=== PATIENT | female | born 1965 | race Caucasian/White ===

== ENCOUNTER 2020-10-19 10:01 | Outpatient (REF) | payer OTHER, SELFPAY ==
--- NOTE | 2020-10-19 10:05 | MM_ITS ---
EXAMINATION: MM SCREENING DIGITAL BREAST TOMOSYNTHESIS, BILATERAL CLINICAL INFORMATION: Screening. Asymptomatic. The lifetime risk of breast cancer based on the Tyrer-Cuzick Model is 6%. COMPARISON: Mammography: 10/07/2019, 10/01/2018, 06/09/2017 TECHNIQUE: Digital breast tomosynthesis is performed in both the craniocaudal and mediolateral oblique views along with computer-aided detection (CAD). Synthesized 2D images are generated from the tomosynthesis. Additional bilateral MLO views are provided. FINDINGS: There are scattered areas of fibroglandular density (ACR BI-RADS breast composition Category b). There are no significant masses, abnormal calcifications, or other abnormalities. MM/MM tomosynthesis screening BI IMPRESSION: No mammographic evidence of malignancy. ASSESSMENT: BI-RADS 1: Negative RECOMMENDATION: Routine annual mammography screening. This patient's information was entered into a reminder system with a target due date for their next mammogram.
== END 2020-10-19 10:02 | disposition home or self-care (01) ==
LOC: HO.MAMMO 10:01
PROVIDERS: PCP Internal Medicine; Visit Provider Internal Medicine
DX: Z12.31 Encounter for screening mammogram for malignant neoplasm of breast (principal)
CPT/HCPCS: 77063; 77067

== ENCOUNTER 2021-10-23 09:44 | Outpatient (REF) | payer OTHER, SELFPAY ==
--- NOTE | ~2021-10-23 | MM_ITS ---
EXAMINATION: MM SCREENING DIGITAL BREAST TOMOSYNTHESIS, BILATERAL CLINICAL INFORMATION: Screening. Asymptomatic. The lifetime risk of breast cancer based on the Tyrer-Cuzick Model is 5%. COMPARISON: Mammography: 10/19/2020, 10/07/2019, 10/01/2018 TECHNIQUE: Digital breast tomosynthesis is performed in both the craniocaudal and mediolateral oblique views along with computer-aided detection (CAD). Synthesized 2D images are generated from the tomosynthesis. FINDINGS: There are scattered areas of fibroglandular density (ACR BI-RADS breast composition Category b). There are no significant masses, abnormal calcifications, or other abnormalities. Parenchymal pattern is similar to prior studies. There is no developing density or architectural abnormality. The axilla and skin contours are unremarkable. No significant changes. MM/MM tomosynthesis screening BI IMPRESSION: No mammographic evidence of malignancy. ASSESSMENT: BI-RADS 1: Negative RECOMMENDATION: Routine annual mammography screening. This patient's information was entered into a reminder system with a target due date for their next mammogram.
== END 2021-10-23 09:45 | disposition home or self-care (01) ==
LOC: HO.MAMMO 09:44
PROVIDERS: Visit Provider Internal Medicine
DX: Z12.31 Encounter for screening mammogram for malignant neoplasm of breast (principal)
CPT/HCPCS: 77063; 77067

== ENCOUNTER 2022-04-08 09:17 | Outpatient (REF) | payer OTHER, SELFPAY ==
[2022-04-08 11:05] LABS: MANUAL DIFF FLAG NO
[2022-04-08 11:07] LABS: Eosinophils Percent Auto 0.3 % (0-4); Hematocrit 45.2 % (37.0-47.0); Hemoglobin 14.8 g/dl (12.0-16.0); Imm Gran Abs Auto 0.01 X10*3/uL (0.00-0.03); Imm Gran Pct Auto 0.3 % (0.0-0.4); Lymphocytes Absolute Auto 0.9 X10*3/uL (1.2-4.9); Lymphocytes Percent Auto 31.1 % (20-40); Mean Corpuscular HGB Conc 32.7 g/dl (31.0-35.0); Mean Corpuscular Hemoglobin 30.6 pg (27.0-33.0); Mean Corpuscular Volume 93.6 fL (80.0-98.0); Mean Platelet Volume 9.9 fL (9.4-12.3); Monocytes Absolute Auto 0.4 X10*3/uL (0.1-1.2); Monocytes Percent Auto 14.7 % (2-11); Neutrophils Absolute Auto 1.6 x10*3/uL (2.0-8.3); Neutrophils Percent Auto 53.6 % (45-73); Platelet Count 205 X10*3/uL (160-400); Red Blood Count 4.83 X10*6/uL (4.20-5.50); Red Cell Distribution Width 11.9 % (11.0-16.0); White Blood Count 2.9 X10*3/uL (4.8-10.8)
[2022-04-08 12:43] LABS: Alanine Aminotransferase 35 U/L (0-31); Albumin Level 4.6 g/dL (3.5-5.0); Alkaline Phosphatase 62 U/L (39-117); Anion Gap 14 (12-20); Aspartate Amino Transferase 32 U/L (5-31); Bilirubin Total 0.3 mg/dL (0.0-1.0); Blood Urea Nitrogen 13 mg/dL (9-16); Carbon Dioxide 25 mmol/L (22-29); Chloride 105 mmol/L (96-108); Cholesterol 254 mg/dL; Estimated Glomerular Filt Rate 59; Glucose Random 93 mg/dL (60-115); HDL Cholesterol 86 mg/dL; LDL Cholesterol Calculated 149 mg/dl; Potassium 4.6 mmol/L (3.3-5.1); Sodium 139 mmol/L (135-145); Total Protein 7.3 g/dL (6.5-8.0); Triglycerides 95 mg/dL
== END 2022-04-08 09:18 | disposition home or self-care (01) ==
LOC: HO.MANLDS 09:17
PROVIDERS: Visit Provider Internal Medicine
DX: E78.00 Pure hypercholesterolemia, unspecified (principal)
CPT/HCPCS: 36415; 80053; 80061; 85025

== ENCOUNTER 2022-10-29 09:39 | Outpatient (REF) | payer OTHER, SELFPAY ==
--- NOTE | ~2022-10-29 | MM_ITS ---
EXAMINATION: MM SCREENING DIGITAL BREAST TOMOSYNTHESIS, BILATERAL CLINICAL INFORMATION: Screening. Asymptomatic. The lifetime risk of breast cancer based on the Tyrer-Cuzick Model is 6%. COMPARISON: Mammography: 10/23/2021, 10/19/2020, 10/07/2019 TECHNIQUE: Digital breast tomosynthesis is performed in both the craniocaudal and mediolateral oblique views along with computer-aided detection (CAD). Synthesized 2D images are generated from the tomosynthesis. FINDINGS: There are scattered areas of fibroglandular density (ACR BI-RADS breast composition Category b). There are no significant masses, abnormal calcifications, or other abnormalities. Parenchymal pattern is similar to prior studies. The axilla and skin contours are unremarkable. MM/MM tomosynthesis screening BI IMPRESSION: No mammographic evidence of malignancy. ASSESSMENT: BI-RADS 1: Negative RECOMMENDATION: Routine annual mammography screening. This patient's information was entered into a reminder system with a target due date for their next mammogram.
== END 2022-10-29 09:40 | disposition home or self-care (01) ==
LOC: HO.MAMMO 09:39
PROVIDERS: Visit Provider Internal Medicine
DX: Z12.31 Encounter for screening mammogram for malignant neoplasm of breast (principal)
CPT/HCPCS: 77063; 77067

== ENCOUNTER 2023-04-13 16:15 | Outpatient (REF) | payer OTHER, SELFPAY | END 2023-04-13 16:16 | disposition home or self-care (01) | LOC: HO.MANLNP 16:15 | PROVIDERS: Visit Provider Physician Assistant | DX: K12.39 Other oral mucositis (ulcerative) (principal) | CPT/HCPCS: 87070 ==

== ENCOUNTER 2023-11-03 08:09 | Outpatient (REF) | payer OTHER, SELFPAY | END 2023-11-03 08:10 | disposition home or self-care (01) | LOC: HO.MAMMO 08:09 | PROVIDERS: PCP Internal Medicine; Visit Provider Internal Medicine | DX: Z12.31 Encounter for screening mammogram for malignant neoplasm of breast (principal) | CPT/HCPCS: 77063; 77067 ==

== ENCOUNTER → 2023-11-03 08:15 | Outpatient (BNV) | payer OTHER, SELFPAY | PROVIDERS: PCP Internal Medicine; Visit Provider Radiology Diagnostic Radiology | DX: Z12.31 Encounter for screening mammogram for malignant neoplasm of breast (principal) | CPT/HCPCS: 77063; 77067 ==

== ENCOUNTER 2025-05-11 16:45 | Outpatient (REF) | payer OTHER, SELFPAY ==
--- NOTE | ~2025-05-11 | XR_ITS ---
EXAMINATION: XR HAND 3 OR MORE VIEWS RIGHT HISTORY: PAIN COMPARISON: There are no prior studies available for comparison. FINDINGS: Three views of the right hand are submitted. Osseous mineralization is normal. There is no fracture or dislocation. There is mild osteoarthritis of the DIP joints and the interphalangeal joint of the thumb, with joint space narrowing and osteophyte formation. The soft tissues are unremarkable. XR/XR hand RT min 3V IMPRESSION: Osteoarthritis of the right hand as described. Electronically signed by: Lai Sawant MD 05/14/2025 07:36 AM EDT
--- NOTE | ~2025-05-11 | XR_ITS ---
EXAMINATION: XR SHOULDER 2 OR MORE VIEWS RIGHT HISTORY: PAIN COMPARISON: There are no prior studies available for comparison. FINDINGS: Four views of the right shoulder are submitted. Osseous mineralization is normal. There is no fracture or dislocation. The glenohumeral and acromioclavicular joint spaces are preserved. The soft tissues are unremarkable. XR/XR shoulder RT min 2V IMPRESSION: Unremarkable examination of the right shoulder. Electronically signed by: Lai Sawant MD 05/14/2025 07:35 AM EDT
--- NOTE | ~2025-05-11 | XR_ITS ---
EXAMINATION: XR CERVICAL SPINE 2-3 VIEWS HISTORY: PAIN COMPARISON: There are no prior studies available for comparison. FINDINGS: AP, lateral, and open-mouth odontoid views of the cervical spine are submitted. Osseous mineralization is normal. Seven cervical vertebral bodies are identified maintaining normal height without evidence of fracture or subluxation. There is straightening of the normal cervical lordosis. There is mild degenerative disc disease at the C4-5 and C5-6 levels, with disc space narrowing and osteophyte formation. The odontoid and lateral masses of C1 are intact. There is no prevertebral soft tissue swelling. XR/XR cervical spine 3V IMPRESSION: Straightening of the normal cervical lordosis. Degenerative disc disease at C4-5 and C5-6. Electronically signed by: Lai Sawant MD 05/14/2025 07:39 AM EDT
--- NOTE | ~2025-05-11 | XR_ITS ---
EXAMINATION: XR ELBOW 3 VIEWS RIGHT HISTORY: PAIN COMPARISON: There are no prior studies available for comparison. FINDINGS: Three views of the right elbow are submitted. There is a 6 mm lucent lesion in the proximal ulna. Osseous mineralization is otherwise normal. There is no fracture or dislocation. The joint spaces are preserved. There may be tiny loose bodies in the joint space. There is no joint effusion. XR/XR elbow RT min 3V IMPRESSION: 6 mm lucent lesion in the proximal ulna. This could be further evaluated with MRI. Possible tiny loose bodies in the joint space. Otherwise unremarkable examination of the right elbow. Electronically signed by: Lai Sawant MD 05/14/2025 07:34 AM EDT
== END 2025-05-11 16:46 | disposition home or self-care (01) ==
LOC: HO.XRAY 16:45
PROVIDERS: PCP Internal Medicine; Visit Provider Physician Assistant
DX: M25.521 Pain in right elbow (principal); M25.511 Pain in right shoulder; M79.641 Pain in right hand; M54.2 Cervicalgia
CPT/HCPCS: 72040; 73030; 73080; 73130

== ENCOUNTER → 2025-05-11 17:00 | Outpatient (BNV) | payer OTHER, SELFPAY | PROVIDERS: PCP Internal Medicine; Visit Provider Radiology Diagnostic Radiology | DX: M50.321 Other cervical disc degeneration at C4-C5 level (principal); M50.322 Other cervical disc degeneration at C5-C6 level; M25.511 Pain in right shoulder; M25.521 Pain in right elbow; M89.8X3 Other specified disorders of bone, forearm; M19.041 Primary osteoarthritis, right hand | CPT/HCPCS: 72040; 73030; 73080; 73130 ==

== ENCOUNTER 2025-06-27 07:59 | Outpatient (REF) | payer OTHER, SELFPAY ==
--- NOTE | ~2025-06-27 | MM_ITS ---
EXAMINATION: MM SCREENING DIGITAL BREAST TOMOSYNTHESIS, BILATERAL CLINICAL INFORMATION: Screening. Asymptomatic. COMPARISON: Comparison made to multiple prior, most recent November 03, 2023, and most remote June 09, 2017. TECHNIQUE: Digital breast tomosynthesis is performed in mediolateral oblique and craniocaudal views along with computer-aided detection (CAD). Synthesized 2D images are generated from the tomosynthesis. FINDINGS: BREAST COMPOSITION: There are scattered areas of fibroglandular density. BILATERAL BREASTS: No significant masses, suspicious calcifications or other abnormalities are seen in either breast. MM/MM tomosynthesis screening BI IMPRESSION: BILATERAL BREASTS: Negative, no mammographic evidence of malignancy. Normal interval follow-up is recommended in 12 months. ASSESSMENT: BI-RADS: Category 1: Negative RECOMMENDATION: Routine annual mammography screening. FOLLOW-UP: 1 year F/U This examination should not preclude the clinical evaluation of a suspicious palpable abnormality. This patient's information was entered into a reminder system with a target due date for their next mammogram. Electronically signed by: Kishore Worrell MD 06/29/2025 02:37 PM EDT
--- OUTSIDE RECORDS SUMMARY | 2025-06-27 08:04 | XMS_ITS | Clinical Summary ---
Author Organization [facility] Address [address] [facility] [address] [place] [id number] Phone Care Team Providers Care Artist And Repertoire Manager Name Role Phone Vu Fiore Primary Care Provider [phone] Allergies No known active allergies Medications amitriptyline (ELAVIL) 10 MG tablet 4 tablets every evening. 1 Active levonorgestrel (MIRENA UTRN) by Intrauterine route. Active baclofen (LIORESAL) 10 MG tablet TAKE 1 TABLET BY MOUTH THREE TIMES DAILY FOR 14 DAYS NEEDED Active phentermine 30 MG capsule Take by mouth daily. Active Active Problems Problem Noted Date Diagnosed Date Insulin resistance 02/22/2023 Overweight 02/10/2023 Anxiety 02/09/2023 Laryngopharyngeal reflux 02/09/2023 Hypercholesterolemia 01/23/2020 Acne 01/08/2020 Migraine 01/08/2020 Encounters Date Type Department Care Team Description 04/25/2025 8:00 AM EDT Office Visit [facility] [address] [place] [address] [place] [address] Sorin Cordero MD Encounter for gynecological examination without abnormal finding (Primary Dx) from Last 3 Months Family History Medical History Relation Comments Brain tumor Father Cardiovascular disease Father Other Father carotid endarter ectomy Relation Status Comments Father Mother Social History Tobacco Use Types Packs/Day Years Used Date Smoking Tobacco: Never Smokeless Tobacco: Never Alcohol Use Standard Drinks/Week Comments Yes 1 (1 standard drink = 0.6 oz pur e alcohol) 1-2 weekly Education Answer Date Recorded Are you interested in more education? Not on nelia e 01/29/2023 Are you concerned about learning? Not on file 01/29/2023 No 01/29/2023 No 01/29/2023 Digital Access Answer Date Recorded No 02/27/2023 No 02/27/2023 Reliable internet access at home? Not on file 02/27/2023 Device with a working camera? 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 Not on file Not on file Not on file Last Filed Vital Signs Vital Sign Reading Time Taken Comments Blood Pressure 100/60 04/25/2025 7:55 AM EDT Pulse - - Temperature - - Respiratory Rate - - Oxygen Saturation - - Inhaled Oxygen Concentration - - Weight 62.7 kg (138 lb 3.2 oz) 04/25/2025 7:55 A M EDT Height 162.6 cm (5' 4 ) 04/25/2025 7:55 AM EDT Body Mass Index 23.72 04/25/2025 7:55 AM EDT Plan of Treatment Health Maintenance Due Date Last Done Comments Adult Td,Tdap Booster 1965 LIPID PANEL 1966 DEPRESSION SCREENING 1978 HEPATITIS C SCREENING 1984 HIV ONE-TIME SCREENING (18-6 5 YEARS) 1984 MAMMOGRAM 2006 COLOGUARD 2011 COLONOSCOPY 2011 COLORECTAL CANCER SCREENING 2011 FIT TEST 2011 FOBT 2011 SIGMOIDOSCOPY 2011 VIRTUAL COLONOSCOPY 2011 PNEUMOCOCCAL VACCINES (50+ years) (1 of 1 - PCV) 2016 ZOSTER VACCINES (1 of 2) 2016 INFLUENZA VACCINE (#1) 2025 COVID-19 VACCINE (1 - 2023-2 5 season) 2025 IUD 02/04/2026 02/04/2018 PAP SMEAR 02/08/2027 02/09/2024, 11/24/2017, 11/24/2017 SMOKING STATUS SCREENING (On ce After 26 Yrs) Completed 04/25/2025 HEPATITIS A VACCINES Aged Out No long er eligible based on patient's age to complete this topic HIB VACCINES Aged Out No longer eligi ble based on patient's age to complete this topic MENINGOCOCCAL VACCINES (ACWY) Aged Out No longer eligible based on patient's age to complete this topic MENINGOCOCCAL VACCINES (B) Aged Out N o longer eligible based on patient's age to complete this topic Medical Devices Not on file Procedures Procedure Name Priority Date/Time Associated Diagnosis Comments PAP TEST Routine 02/09/2024 12:00 AM EDT from Last 3 Months or Most Recently Relevant to Health Maintenance Results * Pap Test (02/09/2024 12:00 AM EDT) 02/09/2024 02/10/2024 10: 42 AM EDT Narrative SEE NARRATIVE - 02/15/2024 1:57 [place] [address] Cleat Layer: Shanice Morales MD GLOBAL COMPENSATION MANAGER Cytology Report FINAL DIAGNOSIS A. PAP SMEAR (THIN PREP) CE: SPECIMEN ADEQUACY: Satisfactory for evaluation; transformation zone present. INTERPRETATION: NEGATIVE FOR INTRAEPITHELIAL LESION OR MALIGNANCY. Atrophy. This specimen was analyzed by the automated ThinPrep Imaging System ([employer] and the selected sánchez were reviewed by a director of land. Electronically Signed Out By: TILA Mckee(ASCP) The Pap test is a screening test primarily for squamous cancers and precursors and has associated false-negative and false-positive results. New technologies such as liquid-based preparations may decrease but will not eliminate all false-negative results. Regular sampling and follow-up of unexplained clinical signs and symptoms are recommended to minimize false negative results. PROCEDURES/ADDENDA HPV Testing (Requested) Ordered Date: 02/10/2024 A. PAP SMEAR (THIN PREP) CE: Human Papilloma Virus Test NEGATIVE for high-risk Human Papilloma Virus types 16, 18, 45 and the Other high risk probe set (Includes 31, 33, 35, 39, 51, 52, 56, 58, 59, 66, 68) Note: Testing performed by Jacqueline Paco Onclarity HR-HPV analysis. Clinical correlation is advised. This HPV test was performed at [facility], [address] [place] [address]. This test has been FDA approved for both SurePath and ThinPrep cervical cytology specimens. The accuracy and precision of this test for all other specimen sources has been verified in the Cytopathology Laboratory of the [facility] and has not been cleared or approved by the U.S. Food and Drug Administration. Clinical correlation is advised. CLINICAL HISTORY Date of Last Menstrual Period: Not Provided Menstrual History: Post Menopausal Treatment History: Hormone Therapy Other Clinical Conditions: Screening Pap SPECIMEN SOURCE A: PAP SMEAR (THIN PREP) CE Patient Name: STEPHEN COSTELLOAN : 1965 (Age: 58) Sex: F Institution: [facility] Location: [facility] Date of Collection: 02/09/2024 Date of Reported: 02/15/2024 13:57 Results to: Sorin Cordero MD Sorin Cordero MD CYTOLOGY ORDERABLES Final Result SEE NARRATIVE from Last 3 Months or Most Recently Relevant to Health Maintenance Insurance [facility] H[facility] Care Teams Artist And Repertoire Manager Relationship Specialty Start Date End Date Vu Fiore DO PCP - General 10/07/17 Additional Source Comments The information contained in this document represents components of the legal health record. It is not the complete legal health record.[facility]
== END 2025-06-27 08:00 | disposition home or self-care (01) ==
LOC: HO.MAMMO 07:59
PROVIDERS: PCP Internal Medicine; Visit Provider Internal Medicine
DX: Z12.31 Encounter for screening mammogram for malignant neoplasm of breast (principal)
CPT/HCPCS: 77063; 77067

== ENCOUNTER → 2025-06-27 08:15 | Outpatient (BNV) | payer OTHER, SELFPAY | PROVIDERS: PCP Internal Medicine; Visit Provider Radiology Body Imaging | DX: Z12.31 Encounter for screening mammogram for malignant neoplasm of breast (principal) | CPT/HCPCS: 77063; 77067 ==

== ENCOUNTER 2025-07-28 09:40 | Outpatient (REF) | payer OTHER, SELFPAY ==
--- OUTSIDE RECORDS SUMMARY | 2025-07-28 09:42 | XMS_ITS | Clinical Summary ---
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 PAP SMEAR (THIN PREP) CE: SPECIMEN ADEQUACY: Satisfactory for evaluation; transformation zone present. INTERPRETATION: NEGATIVE FOR INTRAEPITHELIAL LESION OR MALIGNANCY. Atrophy. This specimen was analyzed by the automated ThinPrep Imaging System ([employer]) and the selected sánchez were reviewed by a investigator cash shortage. Electronically Signed Out By: TILA Mckee(ASCP) The [...] 59, 66, 68) Note: Testing performed by [employer] Onclarity HR-HPV analysis. Clinical correlation is advised. This HPV test was performed at [facility], [address] [place] [address]. This test has been FDA approved for both SurePath and ThinPrep cervical cytology specimens. The accuracy and precision of this test for all other specimen sources has been verified in the Cytopathology Laboratory of the [facility] and has not been cleared or approved by the U.S. Food and Drug Administration. Clinical correlation is advised. CLINICAL HISTORY Date of Last Menstrual Period: Not Provided Menstrual History: Post Menopausal Treatment History: Hormone Therapy Other Clinical Conditions: Screening Pap SPECIMEN SOURCE A: PAP SMEAR (THIN PREP) CE Patient Name: SARAH COSTELLO : 1965 (Age: 58) Sex: F Institution: [facility] Location: [facility] Date of Collection: 02/09/2024 Date of Reported: 02/15/2024 13:57 Results to: Sorin Cordero MD [facility] Final Diagnosis A. PAP SMEAR (THIN PREP) CE: SPECIMEN ADEQUACY: Satisfactory for evaluation; transformation zone present. INTERPRETATION: NEGATIVE FOR INTRAEPITHELIAL LESION OR MALIGNANCY. Atrophy. This specimen was analyzed by the automated ThinPrep Imaging System ([employer]) and the selected sánchez were reviewed by a investigator cash shortage. [facility] Results\Inter pretation A. PAP SMEAR (THIN PREP) CE: Human Papilloma Virus TestNEGATIVE for high-risk Human Papilloma Virus types 16, 18, 45 and the Other high risk probe set (Includes 31, 33, 35, 39, 51, 52, 56, 58, 59, 66, 68)Note: Testing performed by [employer] Onclarity HR-HPV analysis. Clinical correlation is advised. This HPV test was performed at [facility], [address] [place] [address]. This test has been FDA approved for both SurePath and ThinPrep cervical cytology specimens. The accuracy and precision of this test for all other specimen sources has been verified in the Cytopathology Laboratory of the [facility] and has not been cleared or approved by the U.S. Food and Drug Administration. Clinical correlation is advised. [facility] Conversion Type (Conversion Source) 02/09/2024 02/10/2024 10:42 AM EDT us Sorin Cordero MD CYTOLOGY ORDERABLES Edited Resul t - Final [facility] [address] [place] [address] from Last 3 Months or Most Recently Relevant to Health Maintenance Insurance [facility] Member Subscriber Plan / Payer (Ef fective 2017-Present) Name:Sarah Costello Relation to Subscriber:Spouse Name:NELA COSTELLO Date of :1900 (Home) Address: [address] [place] [address] Payer ID:Not on file Type:O Address: [place] [id number] [facility] Member Subscriber Plan / Payer (Ef fective 2017-Present) Name:Sarah Costello Relation to Subscriber:Spouse Name:NELA COSTELLO Date of :1900 (Home) Address: [address] [place] [id number] Payer ID:Not on file Type:HMO Address: [place] [id number] [facility] HMO [facility] HMO Care Teams Nursing Resident Relationship Specialty Start Date End Date Vu Fiore DO PCP - General 10/07/17 Additional Source Comments The information contained in this document represents components of the legal health record. It is not the complete legal health record.[facility]
[2025-07-28 09:50] LABS: MANUAL DIFF FLAG NO
[2025-07-28 10:20] LABS: Hematocrit 47.2 % (37.0-47.0); Hemoglobin 15.3 g/dl (12.0-16.0); Imm Gran Abs Auto 0.03 X10*3/uL (0.00-0.03); Imm Gran Pct Auto 0.6 % (0.0-0.4); Lymphocytes Absolute Auto 1.5 X10*3/uL (1.2-4.9); Mean Corpuscular HGB Conc 32.4 g/dl (31.0-35.0); Mean Corpuscular Hemoglobin 30.9 pg (27.0-33.0); Mean Corpuscular Volume 95.4 fL (80.0-98.0); NRBC Abs Auto 0.000 X10*3/uL (0.0-0.012); NRBC Pct Auto 0.0 /100WBC (0.0-0.2); Platelet Count 256 X10*3/uL (160-400); Red Blood Count 4.95 X10*6/uL (4.20-5.50); White Blood Count 4.7 X10*3/uL (4.8-10.8)
[2025-07-28 11:30] LABS: Folate 6.9 ng/mL (> or = 4.0); Vitamin B12 1204 pg/mL (200-900)
[2025-07-28 11:52] LABS: Alanine Aminotransferase 38 U/L (0-31); Albumin Level 5.0 g/dL (3.5-5.0); Alkaline Phosphatase 55 U/L (39-117); Anion Gap 13 (12-20); Aspartate Amino Transferase 33 U/L (5-31); Blood Urea Nitrogen 14 mg/dL (9-16); Calcium 9.2 mg/dL (8.4-10.2); Carbon Dioxide 24 mmol/L (22-29); Chloride 108 mmol/L (96-108); Cholesterol 296 mg/dL (<200); Estimated Glomerular Filt Rate > 60; HDL Cholesterol 98 mg/dL (>40); Potassium 4.4 mmol/L (3.3-5.1); Sodium 141 mmol/L (135-145); Total Protein 7.5 g/dL (6.5-8.0); Triglycerides 97 mg/dL (<150)
== END 2025-07-28 09:41 | disposition home or self-care (01) ==
LOC: HO.LAB 09:40
PROVIDERS: PCP Internal Medicine; Visit Provider Physician Assistant
DX: M54.12 Radiculopathy, cervical region (principal); E78.00 Pure hypercholesterolemia, unspecified
CPT/HCPCS: 36415; 80053; 80061; 82306; 82607; 82746; 85025; 85652; 86140

== ENCOUNTER 2025-08-10 16:34 | Outpatient (REF) | payer OTHER, SELFPAY ==
--- OUTSIDE RECORDS SUMMARY | 2025-08-09 23:59 | XMS_ITS | Continuity of Care Document ---
Author Organization [facility] Address [address] [place] [address]- Care Team Providers Care Medical Assistant Name Role Phone Vu Fiore DO Primary Care Physician Encounter 08/08/25 - 08/09/[address] [address] Attending Physician: Not on Staff, Attending MD Referring Physician: Kalpana Silverman Encounter Type: [facility] Allergies, Adverse Reactions, Alerts No Known Medication Allergies Medications amiTRIPTYLINE = 40 mg, By Mouth, Daily at bedtime, 0 Refills, Maintenance, 10/14/17 10:31:51 AM EST Start Date: 10/14/17 Status: Ordered Medication Dispense Status: Completed Total Allowed Fills: 1 Fills Dispensed: 0 Latisse 0.03% topical solution 1 application, Topically, Daily at bedtime, apply to the skin of the upper eyelid at the base of the eyelashes, # 3 mL, 1 Refills, Maintenance, 01/18/18 12:06:47 PM EDT, Solution Start Date: 01/18/18 Status: Ordered Medication Dispense Status: Completed Quantity: 3.0 Unit: mL Total Allowed Fills: 2 Fills Dispensed: 0 Multivitamin Daily, 0 Refills, Maintenance, 01/18/18 10:13:59 AM EDT Start Date: 01/18/18 Status: Ordered Medication Dispense Status: Completed Total Allowed Fills: 1 Fills Dispensed: 0 Problem List Condition Confirmation Course Effective Dates Status Health St atus Informant Encounter for screening colonoscopy Confirmed Active Results Radiology Reports * Exam Date Time Procedure Performing Provider Status 08/08/25 8:50 AM MRI Orbit,Face,Neck W+W/O Contrast Auth (Verified) Notes: (MRI Orbit,Face,Neck W+W/O Contrast) Reason For Exam: nontoxic single thyroid nodule;nontoxic single thyroid nodule RESULT: MRI Orbit,Face,Neck W+W/O Contrast MRI Orbit,Face,Neck W+W/O Contrast INDICATION: nontoxic single thyroid nodule TECHNIQUE: Multiplanar, multisequence MRI of the neck was performed before and after the administration of intravenous contrast. 6 mL of Elucirem was administered intravenously. COMPARISON: Correlation with ultrasound performed 07/11/2025. FINDINGS: Visualized intracranial structures and orbits: Normal. Visualized paranasal sinuses and mastoids: Unremarkable. Mucosal surfaces: Mucosal surfaces appear normal and symmetric, including the nasopharynx, oral cavity, oropharynx, hypopharynx, larynx, and trachea. No nodularity or hyperenhancement is seen. Superficial and deep neck spaces: Normal. Cervical lymph nodes: Normal in size and morphology. Salivary glands: The parotid glands and submandibular glands are normal. Thyroid gland: As better assessed on the previous ultrasound, there are nodules in the right thyroid lobe. The larger is a posterior nodule in the mid to lower gland measuring up to approximately 2.4cm in maximal dimension. The second is a smaller nodule in the upper pole measuring up to approximately 1.3 cm in maximal dimension. No additional nodules are demonstrated. Vascular structures: Major cervical flow voids are maintained. Upper chest: No significant abnormality of the visualized lung apices and upper mediastinum. Bones: Marrow signal is preserved. IMPRESSION: Right thyroid nodules as assessed in greater detail by the previous ultrasound. Sizes appear similar to the ultrasound examination. Ultrasound features suggested characteristics warranting biopsy of the larger nodule, as previously recommended. WSN: [id number] Ordering Physician: Kalpana Peterson Dictated By: Breonna Bai MD Dictated Date/Time: 08/09/25 4:56 pm Reviewed By: Breonna Bai MD Signed By: Breonna Bai MD Signed Date/Time: 08/09/25 4:56 pm Transcribed By: RAMY Transcribed Date/Time: 08/09/25 4:49 pm Social History Social History Type Response Smoking Status Never smoker entered on: 10/14/17 Sex Sex Representation Female (finding) Patient Care team information Care Team Personnel Name: Vu Fiore DO Position: Reference Physician Member Role: PCP Address: [address] [place] [address] Internal Medicine [address] Telecom: Care Team Related Persons Name: TRANG SERAFIN Insurance Providers Guarantor name: OSEAS COSTELLO [facility] Plan Information #: 1 Payer: [facility] FF NON P HMO P Payer Identifier: NA Member Number: [id number] Group Number: [id number] Subscriber Identifier: NA Relationship to Subscriber: self Coverage Type: Other Private Insurance Coverage Verification Date: NA Telecom: NA Address:
--- OUTSIDE RECORDS SUMMARY | 2025-08-10 16:53 | XMS_ITS | Clinical Summary ---
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 PAP SMEAR (THIN PREP) CE: SPECIMEN ADEQUACY: Satisfactory for evaluation; transformation zone present. INTERPRETATION: NEGATIVE FOR INTRAEPITHELIAL LESION OR MALIGNANCY. Atrophy. This specimen was analyzed by the automated ThinPrep Imaging System ([employer].) and the selected sánchez were reviewed by a field inspector. Electronically Signed Out By: TILA Mckee(ASCP) The [...] 59, 66, 68) Note: Testing performed by [facility] Onclarity HR-HPV analysis. Clinical correlation is advised. This HPV test was performed at [facility], [address] [place] [address]. This test has been FDA approved for both SurePath and ThinPrep cervical cytology specimens. The accuracy and precision of this test for all other specimen sources has been verified in the Cytopathology Laboratory of the [facility] and has not been cleared or approved by the U.S. Food and Drug Administration. Clinical correlation is advised. CLINICAL HISTORY Date of Last Menstrual Period: Not Provided Menstrual History: Post Menopausal Treatment History: Hormone Therapy Other Clinical Conditions: Screening Pap SPECIMEN SOURCE A: PAP SMEAR (THIN PREP) CE Patient Name: SARAH COSTELLO : 1965 (Age: 58) Sex: F Institution: [place] Location: [facility] Date of Collection: 02/09/2024 Date of Reported: 02/15/2024 13:57 Results to: Sorin Cordero MD [facility] Final Diagnosis A. PAP SMEAR (THIN PREP) CE: SPECIMEN ADEQUACY: Satisfactory for evaluation; transformation zone present. INTERPRETATION: NEGATIVE FOR INTRAEPITHELIAL LESION OR MALIGNANCY. Atrophy. This specimen was analyzed by the automated ThinPrep Imaging System ([employer] Boat.) and the selected sánchez were reviewed by a field inspector. [facility] Results\Inter pretation A. PAP SMEAR (THIN PREP) CE: Human Papilloma Virus TestNEGATIVE for high-risk Human Papilloma Virus types 16, 18, 45 and the Other high risk probe set (Includes 31, 33, 35, 39, 51, 52, 56, 58, 59, 66, 68)Note: Testing performed by [facility] Onclarity HR-HPV analysis. Clinical correlation is advised. This HPV test was performed at [facility], [address] [place] [address]. This test has been FDA approved for both SurePath and ThinPrep cervical cytology specimens. The accuracy and precision of this test for all other specimen sources has been verified in the Cytopathology Laboratory of the [facility] and has not been cleared or approved by the U.S. Food and Drug Administration. Clinical correlation is advised. [facility] Conversion Type (Conversion Source) 02/09/2024 02/10/2024 10:42 AM EDT us Sorin Cordero MD CYTOLOGY ORDERABLES Edited Resul t - Final [facility] [address] [place] [address] from Last 3 Months or Most Recently Relevant to Health Maintenance Insurance [facility] Member Subscriber Plan / Payer (Ef fective 2017-Present) Name:Sarah Costello Relation to Subscriber:Spouse Name:NELA COSTELLO Date of :1900 (Home) Address: [address] [place] [address] Payer ID:Not on file Type:O Address: [place] [id number] [facility] Member Subscriber Plan / Payer (Ef fective 2017-Present) Name:Sarah Costello Relation to Subscriber:Spouse Name:NELA COSTELLO Date of :1900 (Home) Address: [address] [place] [id number] Payer ID:Not on file Type:HMO Address: [place] [id number] [facility] HMO [facility] HMO Care Teams Emissions Technician Relationship Specialty Start Date End Date Vu Fiore DO PCP - General 10/07/17 Additional Source Comments The information contained in this document represents components of the legal health record. It is not the complete legal health record.[facility]
--- OUTSIDE RECORDS SUMMARY | 2025-08-10 16:53 | XMS_ITS | Data Portability ---
Author Organization [facility], Telehealth Patient Home Address [address] [place] [address] Assessment Encounter Date Assessment Date Assessment LastModified by Organization Details LastModified Time 07/26/2024 07/26/2024 Patient agreed and verbally consents to this audio and video Telehealth appt via a secure platform [email or web address] Not available 07/26/2024 15:17:42 Plan of Treatment Reminders Order Date Submit Date Provider Last Modified By Organization Details Last Modified Time Details Appointments None recorded. Lab vitamin B12 + folate, serum or blood 2024 025 [facility], [address] [place] [address], [address], 16:32:41 vitamin D, 25-hydroxy , total, serum 2024 025 [facility], [address] [place] [address], [address], 5 16:32:41 ESR (erythrocy te sedimentat ion rate), blood 2024 025 [facility], [address] [place] [address], [place], [address], 5 16:32:42 C-reactive protein, quantitati ve, serum or plasma 2024 025 [facility], [address] [place] [address], [address], 5 06:14:55 lipid panel, serum 2024 025 [facility], [address] [place] [address], [address], 5 16:32:42 CMP, serum or plasma 2024 025 [facility], [address] [place] [address], [address], 5 16:32:41 CBC w/ auto diff 2024 025 [facility], [address] [place] [address], [address], 5 16:32:41 culture, throat 2022 023 [facility], [address] [place] [address], [address], 3 11:55:37 Referral None recorded. Procedures None recorded. Surgeries None recorded. Imaging XR, cervical spine, 2 or 3 view 2024 025 [email or web address] [facility], [address] [place] [address], [place], [address], 5 08:22:00 MR, angiogram, brain, w/o contrast - open MRI 2022 023 [facility] ([facility]), [address] [place] [address], [address], 3 08:19:20 Medication Orders sulfametho xazole 800 mg-trimeth oprim 160 mg tablet 2024 025 [facility], [address] [place], [place], [id number], 5 09:37:34 amitriptyl ine 10 mg tablet 2024 025 [facility], [address] [place], [place], [id number], 5 16:23:06 cyclobenza stephan 10 mg tablet 2024 025 [facility] #64042, [address] [place] [address], [place], [id number], 5 09:37:57 prednisone 10 mg tablet 2024 025 [facility] #59085, [address] [place] [address], [place], [id number], 5 09:37:52 phentermin e 30 mg capsule 2024 025 [facility] #03382, [address] [place] [address], [place], [id number], 5 16:23:12 mirtazapin e 15 mg tablet 2024 025 [facility] #20129, [address] [place] [address], [place], [id number], 5 08:20:20 clotrimazo le-betamet hasone 1 %-0.05 % topical cream 2023 025 [facility] #67998, [address] [place] [address], [place], [id number], 5 13:28:47 sucralfate 1 gram tablet 2023 024 [facility] #12441, [address] [place], [place], [id number], 5 13:29:17 alprazolam 0.25 mg tablet 2023 025 [facility] #04229, [address] [place] [address], [place], [id number], 5 13:30:10 hydroxyzin e HCl 25 mg tablet 2023 025 [facility] #13998, [address] [place] [address], [place], [id number], 5 13:28:48 triamcinol one acetonide 0.1 % dental paste 2022 023 [facility] #04416, [address] [place] [address], [place], [id number], 5 13:29:46 chlorhexid ine gluconate 0.12 % mouthwash 2022 023 [facility] #18673, [address] [place] [address], [place], [id number], 5 13:28:24 valacyclov ir 1 gram tablet 2022 023 [facility] #69377, [address] [place] [address], [place], [id number], 5 13:29:40 phentermin e 15 mg capsule 2022 023 [facility] #92175, [address] [place] [address], [place], [id number], 4 15:08:07 nystatin 100,000 unit/mL oral suspension 2022 023 [facility] #02551, [address] [place] [address], [place], [id number], 3 08:26:04 buspirone 10 mg tablet 2022 023 [facility] #08232, [address] [place] [address], [place], [id number], 3 13:34:13 phentermin e 30 mg capsule 2022 023 [facility] #88539, [address] [place] [address], [place], [id number], 13:29:37 Patient TargetsNo targets recorded. Patient InstructionsNo instructions recorded. Reason for Referral None Reported. Results Created Date Observation Date Name Description Value Unit Range Abnormal Flag Note LastModifiedBy Organization Detail LastModifiedTime 03/30/2003/29/2023 MR, angio gram, brain , w/o contr ast No observ ation record ed. [facility] ([facility]) [address], [place], [address], 03/31/2023 09:03:43 11/25/19 24 11/03/2023 MAMMO , scree seth, digit al, bilat eral No observ ation record ed. [email or web address] [facility] [address] [place], [address], 11/26/2023 08:26:25 05/14/20 25 05/11/2025 XR, elbow , 3 or more view No observ ation record ed. [facility] (Medical Records) [address] [place], [address], 05/14/2025 08:36:31 05/14/2005/11/2025 XR, shoul lorraine, 2 or more view No observ ation record ed. [facility] (Medical Records) [address] [place], [address], 05/14/2025 08:36:32 05/14/2005/11/2025 XR, hand, 3 or more view No observ ation record ed. [facility] (Medical Records) [address] [place], [address], 05/14/2025 08:36:32 08/11/05/11/2025 XR, cervi rodriguez spine , 2 or 3 view No observ ation record ed. [facility] (Medical Records) [address] [facility], [place], [address], 05/15/2025 12:06:18 06/13/2006/12/2025 MRI, cervi rodriguez spine , w/o contr ast No observ ation record ed. [email or web address] [facility] [address] [facility] [place], [address], 06/29/2025 14:25:39 06/29/20 25 06/28/2025 MRI, elbow , w/o contr ast No observ ation record ed. [facility] ([facility]) [address] [facility] [place], [address], 06/29/2025 14:26:07 06/29/20 25 06/27/2025 MAMMO , scree seth, digit al, bilat eral No observ ation record ed. [email or web address] [facility] [place] [address] [place], [address], 06/29/2025 14:50:27 07/11/2007/11/2025 US, thyro id No observ ation record ed. [facility] [address] [facility], [place], [address], 07/13/2025 08:52:52 08/09/2008/08/2025 MRI, neck, w/wo contr ast No observ ation record ed. [email or web address] ([facility]) [address] [place], [address], 08/10/2025 16:28:55 Result Notes None recorded. Problems Name Problem SNOMED Code Status Onset Date Resolution Date Notes Provider Name and Address Organization Details Recorded Time Acne 48219438 Active 2019 Marika hawley [place] - [facility] 0 09:02:49 Migraine 38269910 [facility] 0 09:02:52 Hyperchol esterolem ia 44796065 Active 2019 Vu Fiore DO [address] [place], [address], [facility] 0 09:01:45 Pain in throat 706005005 Active 2022 JAH MARTINES [address] [place], [address], [facility] 3 14:17:37 Laryngoph aryngeal reflux 347987328 Active 2022 JAH MARTINES [address] [place] [address], [address], [facility] 3 14:20:21 Anxiety 39888394 Active 2022 JAH MARTINES [address] [place] [address], [address], [facility] 5 16:37:33 Overweigh t 791483858 Active 2022 JAH MARTINES [address] [place] [address], [address], [facility] 3 13:08:05 Insulin resistanc e 699606228 Active 2022 JAH MARTINES [address] [place], [address], 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 2022 JAH MARTINES [address] [place], [address], [facility] 3 13:45:47 Lesion of oral mucosa 027197031138 9106 Active 2022 JAH MARTINES [address] [place], [address], [facility] 3 13:52:58 Lesion of tongue 518438406 Active 2022 JAH MARTINES [address] [place] [address], [address], [facility] 3 09:27:03 Ulcer of mouth 40432710 Active 2023 JAH MARTINES [address] [place] [address], [address], [facility] 4 15:08:45 Cracked lips 536908814 Active 2023 JAH MARTINES [address] [place] [address], [address], [facility] 4 15:14:40 Pain of right shoulder joint 084457482815 58722 Active 2024 JAH MARTINES [address] [place] [address], [address], [facility] 5 13:01:37 Fear of flying 495567783 Active 2024 JAH MARTINES [address] [place] [address], [address], [facility] 5 13:02:24 Motion sickness 34436320 Active 2024 JAH MARTINES [address] [place] [address], [address], [facility] 5 13:03:01 Acute urinary tract infection 705126663 Active 2024 Vu Fiore DO [address] [place] [address], [address], [facility] 5 09:11:06 Pain in cervical spine 975613506 Active 2024 JHA MARTINES [address] [place] [address], [address], [facility] 5 16:15:39 Cervical radiculop athy 69522276 Active 2024 JAH MARTINES [address] [place], [address], [facility] 5 16:25:15 Pain of right hand 702994095975 109 Active 2024 JAH MARTINES [address] [place], [address], [facility] 5 08:27:46 Pain of right shoulder region Active 2024 JAH MARTINES [address] [place], [address], [facility] 5 08:28:00 Pain of elbow region 57109382 Active 2024 JAH MARTINES [address] [place], [address], [facility] 5 08:28:11 Thyroid nodule 842042457 Active 2024 JAH MARTINES [address] [place], [address], [facility] 5 09:19:25 Problem Notes None recorded. Procedures Surgical History Date Name Laterality Status Provider Name and Address Organization Details Recorded Time 06/27/20 Most Recent Mammogram completed Penny Crowell [facility] 06/29/2025 14:50:11 06/25/20 Colonoscopy completed Vu Fiore DO [address] [place], [address], [facility] 06/25/2020 11:06:09 Imaging Results None recorded. Procedure Notes None recorded. Medical Equipment None Reported. Allergies No known drug allergies Medications Name Sig Start Date Stop Date Status Note LastModified by Organization Details LastModified Time cyclobenzap rine 10 mg tablet TAKE 1 TABLET BY MOUTH THREE TIMES DAILY FOR 15 DAYS NEEDED 05/01 completed Not Available Not Available Not Available nystatin 100,000 unit/mL oral suspension SHAKE LIQUID AND TAKE 5 ML BY MOUTH FOUR TIMES DAILY FOR 7 DAYS 04/19 completed Not Available Not Available Not Available venlafaxine ER 37.5 mg capsule,ext ended release 24 hr TAKE 1 CAPSULE BY MOUTH EVERY DAY 07/26 completed Not Available Not Available Not Available prednisone 10 mg tablet 4 tabs x 3 days 3 tabs x 3 days 2 tabs x 3 days 1 tabs x 3 days 05/01 completed Not Available Not Available Not Available valacyclovi r 1 gram tablet TAKE 1 TABLET BY MOUTH THREE TIMES DAILY FOR 7 DAYS DIRECTED 10/24 completed Not Available Not Available Not Available tretinoin 0.025 % topical cream 10/24 completed Not Available Not Available Not Available meloxicam 15 mg tablet TAKE 1 TABLET BY MOUTH EVERY DAY WITH MEALS active Not Available Not Available No t Available sucralfate 1 gram tablet TAKE 1 TABLET BY MOUTH FOUR TIMES DAILY FOR 14 DAYS NEEDED 10/24 completed Not Available Not Available Not Available phentermine 15 mg capsule TAKE 1 CAPSULE BY MOUTH EVERY DAY FOR 14 DAYS 07/26 completed Not Available Not Available Not Available topiramate 25 mg tablet active Not Available Not Available Not Available ciprofloxac in 250 mg tablet TAKE 1 TABLET BY MOUTH EVERY 12 HOURS FOR 7 DAYS 03/12 completed Not Available Not Available Not Available sulfamethox azole 800 mg-trimetho prim 160 mg tablet TAKE 1 TABLET BY MOUTH TWICE DAILY active Not Available Not Available No t Available phentermine 30 mg capsule TAKE 1 CAPSULE BY MOUTH EVERY DAY active Not Available Not Available No t Available alprazolam 0.25 mg tablet TAKE 1 TABLET BY MOUTH TWICE DAILY FOR 14 DAYS NEEDED 10/24 completed Not Available Not Available Not Available lorazepam 0.5 mg tablet TAKE 1 TABLET BY MOUTH THREE TIMES DAILY FOR 7 DAYS NEEDED 03/12 completed Not Available Not Available Not Available triamcinolo ne acetonide 0.1 % dental paste APPLY 1 APPLICATI ON TWICE DAILY BY DENTAL ROUTE FOR 14 DAYS 10/24 completed Not Available Not Available Not Available amitriptyli ne 10 mg tablet TAKE 4 TABLETS BY MOUTH AT BEDTIME active Not Available Not Available No t Available baclofen 10 mg tablet TAKE 1 TABLET BY MOUTH THREE TIMES DAILY FOR 14 DAYS NEEDED 05/01 completed Not Available Not Available Not Available acyclovir 5 % topical ointment 02/09 completed Not Available Not Available Not Available mirtazapine 30 mg tablet TAKE 1 TABLET BY MOUTH EVERY DAY active Not Available Not Available No t Available buspirone 10 mg tablet TAKE 2 TABLETS BY MOUTH EVERY DAY AT BEDTIME 07/23 completed d/c Not Available Not Available Not Available clotrimazol e-betametha sone 1 %-0.05 % topical cream APPLY TOPICALLY TO THE AFFECTED AND SURROUNDI NG AREAS TWICE DAILY IN THE MORNING AND IN THE EVENING FOR 2 WEEKS 10/24 completed Not Available Not Available Not Available hydroxyzine HCl 25 mg tablet TAKE 1 TABLET BY MOUTH THREE TIMES DAILY FOR 14 DAYS NEEDED 10/24 completed Not Available Not Available Not Available fluocinolon e 0.025 % topical ointment APPLY TO LIPS TWICE DAILY UP TO 10 DAYS. TAKE AT LEAST 5 DAYS OFF. RESUME IF NEEDED 10/24 completed Not Available Not Available Not Available mirtazapine 15 mg tablet TAKE 1 TABLET BY MOUTH EVERY DAY AT BEDTIME 07/03 completed Not Available Not Available Not Available scopolamine 1 mg over 3 days transdermal patch APPLY 1 PATCH TOPICALLY TO THE SKIN EVERY 72 HOURS FOR 14 DAYS 05/01 completed Not Available Not Available Not Available methylpredn isolone 4 mg tablets in a dose pack Take 1 dose pk by oral route. 04/19 completed Not Available Not Available Not Available oxycodone 5 mg tablet TAKE 1 TABLET BY MOUTH EVERY 4 HOURS FOR 2 DAYS DIRECTED 07/26 completed Not Available Not Available Not Available bupropion HCl XL 150 mg 24 hr tablet, extended release TAKE 1 TABLET BY MOUTH EVERY DAY active Not Available Not Available No t Available chlorhexidi ne gluconate 0.12 % mouthwash TAKE 15 ML BY MOUTH TWICE A DAY SWISH IN MOUTH THEN SPIT DO NOT SWALLOW 10/24 completed Not Available Not Available Not Available Bactrim 03/10 completed Not Available Not Available Not Available Suprep Bowel Prep Kit 17.5 gram-3.13 gram-1.6 gram oral solution 01/08 completed Not Available Not Available Not Available Wegovy 0.25 mg/0.5 mL subcutaneou s pen injector 03/10 completed Not Available Not Available Not Available Vitals Date Recorded Body height Body mass index (BMI) Body weight Heart rate Oxygen saturation Oxygen saturation in Arterial blood by Pulse oximetry Systolic And Diastolic Provider Name and Address Organization Details Last Updated DateTime 3 160.02 cm 25 kg/m2 02814.5 2 g 83 /min 99 % 99 % 100/70 mm[Hg] Liliam Lewis [facility] 3 13:32:27 Date Recorded Body height Body mass index (BMI) Body weight Heart rate Oxygen saturation Oxygen saturation in Arterial blood by Pulse oximetry Systolic And Diastolic Provider Name and Address Organization Details Last Updated DateTime 5 160.02 cm 24.6 kg/m2 85291.9 g 85 /min 99 % 99 % 120/82 mm[Hg] Penny Crowell [facility] 5 16:07:58 Date Recorded Body height Body mass index (BMI) Body weight Oxygen saturation Oxygen saturation in Arterial blood by Pulse oximetry Systolic And Diastolic Provider Name and Address Organization Details Last Updated DateTime 3 160.02 cm 25 kg/m2 89678.5 2 g 11 % 11 % 110/70 mm[Hg] Liliam Lewis [facility] 3 13:39:58 Social History Question Answer Notes LastModified by Organizat ion Details LastModified Time Tobacco Smoking Status Never Smoker Not Available [facility] 08/06/2020 03:36:24 What Was The Date Of Your Most Recent Tobacco Screening? 03/12/2025 [email or web address] Information not available 03/12/2025 Sex: Unknown Functional Status Question Answer Note LastModified by Organization D etails LastModified Time Do you or have you ever used any other forms of tobacco or nicotine? No [email or web address] Information not available 04/13/2023 Mental Status None recorded. Family History Nothing Reported. Medical History No medical history recorded. Gynecological History Statement/Question Response Most Recent Mammogram 06/27/2025 Obstetrics History GPAL:G 0 P 0 0 0 0 Past Encounters Encounter ID Performer Location Encounter Start Date Encounter Closed Date Diagnosis/Indication Diagnosis SNOMED-CT Code Diagnosis ICD10 Code Diagnosis IMO Codes Diagnosis Note [id number] [facility] [address] [facility],[place] [address] 01/09/2020 10:00:41 01/09/2020 10:27:30 Adult health examination 909042653 Z00.00 Active or passive immunization 141383888 Z23 [id number] [facility] [address] [facility],[place] [address] 09/06/2020 10:51:22 09/06/2020 14:36:16 Cervical radiculopathy 89747180 M54.12 will sent up with GINA Thoracic back pain 94536 8004 M54.6 well see what GINA sees on eval [id number] [facility] [address] [facility],[place] [address] 03/10/2021 13:38:48 03/10/2021 14:26:25 Hypercholesterolemia 86909132 E78.00 will chk lab Acne 38039846 L70.9 stable on current reg Migraine 64801770 G43.90 9 stable on current reg [id number] [facility] [address] [facility],[place] [address] 04/20/2022 11:56:45 04/20/2022 12:36:10 Acne 62056888 L70.9 stable on current reg Migraine 80746660 G43.90 9 stable on current reg Hypercholesterolemia 136 78446 E78.00 reviewed lab in detailLDL is 148 HDL is 86 Active or passive immunization 286469900 Z23 advised due for Tdap [id number] [facility] [address] [facility],[place] [address] 02/09/2023 13:58:24 02/10/2023 11:45:12 Pain in throat 870813854 R07.0 discussed patient diagnosis Laryngopha ryngeal reflux 143715856 K21.9 will f/u in 3 weeks Anxiety 98496649 F41.1 discussed starting with bupropion for anxiety control; also has benefits for weight lossdiscus [place] [id number] [facility] [address] [facility] [place] [address] 03/10/2023 13:23:08 03/10/2023 14:25:13 Generalized anxiety disorder 09887266 F41.1 agreed to switch out to buspar for anxiety treatment Family his tory of aneurysm of blood vessel of brain 2520004857 2761382 Z82.49 agreed to aneursym Insulin resistance 37755 5000 E88.81 [id number] [facility] [address] [place] [address] 04/13/2023 13:30:47 04/13/2023 14:51:22 Oral mucosal fungal disease 570484866 B48.8 will start dual treatment with valtrex and nystatin Insulin resistance 09825 5000 E88.81 drop down to phentermin e 15 mg Migraine 46569964 G43.00 9 stable Lesion of oral mucosa 10 61999296 859201 K12.39 will set up with Valtrexwil l f/u with culture of her mouth and throat [id number] [facility] [address] [place] [address] 04/19/2023 08:15:59 04/19/2023 08:52:53 Lesion of oral mucosa 0814193326 460546 K12.39 d/c valtrex, medrol trial the topical anti-infla mmatory and an antimicrob ial mouth washd/c OTC mouthwashc ont with regular toothpaste [id number] [facility] [address] [address] 07/26/2024 14:31:16 07/26/2024 15:28:00 Lesion of oral mucosa 6549264991 539855 K12.39 d/c valtrex, medrol trial the topical anti-infla mmatory and an antimicrob ial mouth washd/c OTC mouthwashc ont with regular toothpaste Laryngopha ryngeal reflux 636525201 K21.9 will f/u in 3 weeks Ulcer of mouth 48984976 K12.1 has derm appt coming up soon, will have them evaluate it Anxiety 12192740 F41.1 has failed multiple medication for the anxiety Cracked lips 801161725 K 13.0 told her to invest in humidifier [id number] Vu Fiore DO [facility] [address] [facility],[place] [address] 03/12/2025 15:59:22 03/13/2025 10:17:46 Depression screening 168076505 Z13.31 stable Pain in ce rvical spine 399927756 M54.2 0275729 will set up wti Migraine 37103310 G43.00 9 stable Acne 79749549 L70.9 will set up bactrim Insulin resistance 62052 5000 E88.819 continue on medication Hypercholesterolemia 136 85007 E78.00 will set up with lipid and other bw Cervical radiculopathy 61375439 M54.12 [id number] will sent up with [facility] Anxiety 08912282 F41.9 59058 has failed multiple medication for the anxiety Health Concerns Section Related Observation LastModified by Organization Detai ls LastModified Time None Recorded Concern Status LastModified by Organization Details LastModified Time None Recorded Advance Directives Directive None Recorded Payers Insurance Date Sequence Insurance Name Policy Number Policy Dalal Covered Member ID Dalal Member ID Guarantor Name 03/09/[address] [place] [address] [id number] Alina Thao [id number] Saarh Thao Notes Date Note Type Note Provider Name a nd Address Organization Details Recorded Time 3 text/html ROS as noted in the HPI 4 week f/u the patient did well on the on the sulcralfateonly needs to take it now for flare-upsreports her throat feels much better, farzad with dietary changes the patient has noticed a difference in her throat as well the patient reports the wellbutrin did not help with her anxiety BP is excellent today as usualno headaches, no chest pain, no fever, no chills JAH MARTINES [address] [facility], [place], [address], [facility] 03/10/2023 13:52:32 3 text/html ROS as noted in the HPI 4 week f/uthe patient has been having white bumps, dryness and burningthe white bumps are moving toward her nose possible HSV vs fungal infectiond.c any med that can cause ulcers in the mouth started on valtrex and nystatin swish and spit will f/u Wednesdayculture sent out JAH MARTINES [address] [place], [address], [facility] 04/13/2023 14:07:46 3 text/html ROS as noted in the HPI 1 week fu the patient is here for her one week f/uthe patient has some improvement with the white patches/ulcerations of her mouth and tonguedoes have a persistant one at the tip of her tongue which is taking longer, most likely because of the locationstill having dryness and burning of her lips cont off meds we d/c last week trial topical steriod dental paste and mouth wash since it doesn't seem infectious; rather an inflammatory response valtrex didn't help nor did the anti-fungal but the medrol seemed to work the best her swab came back negativeno bacterial or other agents present JAH MARTINES [address] [place], [id number], [facility] 04/19/2023 08:35:02 4 text/html ROS as noted in the HPI c/o sore throat and lips The patient is participating in this appointment via telemedicine communication with a phone call/video calling service ([employer])The patient consents to use of these platforms in place of an in-person appointment due to either sick symptoms the patient is presenting with or current office closure due to COVID exposure in order to keep our office staff and patients safe lesion is backstress is highworking on alt for anxietypt agreed to try xanax and hydroxy combo given severe anxiety and panic d/o will fu wednesdayha derm fu will have them assess lesions start back on sucralfate for the reflux given alt topical for cracked lips JAH MARTINES [address] [place], [id number], [facility] 07/26/2024 15:19:10 5 text/html ROS as noted in the HPI f/u lab work check the patient reports that she is reporting tingling into her right armthe patient is right hand dominantthe patient is reporting that the msk relaxer was ineffective and had no response to itthe patient does have hx of cervical spine pain and tightness recommended lab work and imagingprobably cervical radiculopathy needs bactrim refilled will f/u with patient after lab work and XR suggested the mirtazapine for sleep and anxietythe patient agreed to trial medication JAH MARTINES [address] [place] [address], [place], [id number], [facility] 03/12/2025 16:42:38 OBGyn Episode No OBEpisode recorded.
[2025-08-10 17:41] LABS: Parathyroid Hormone Intact 51.8 pg/mL (8.7-77.1)
== END 2025-08-10 16:35 | disposition home or self-care (01) ==
LOC: HO.LAB 16:34
PROVIDERS: PCP Internal Medicine; Visit Provider Physician Assistant
DX: E04.1 Nontoxic single thyroid nodule (principal)
CPT/HCPCS: 36415; 83970; 84443; 84445; 85652; 86140; 86376